=== PATIENT | female | born 1965 | race Caucasian/White ===

== ENCOUNTER 2018-10-01 14:11 | Emergency (ER) | payer SELFPAY ==
[2018-10-01 14:24] VITALS: BMI 26.4
--- NOTE | 2018-10-01 14:24 | PDOC ---
Rapid Medical Evaluation Chief Complaint: Lightheaded Time Seen by Provider: 10/01/18 14:20 Medical Evaluation: Allergies Allergy/AdvReac Type Severity Reaction Status Date / Time No Known Allergies Allergy Verified 04/11/18 19:47 10/01/18 14:23 I have performed a brief in-person evaluation of this patient. The patient presents with a chief complaint of: no PMhx present with complains 2weeks h/o dizziness with N/V. Denies diarrhea, weakness, SOB, constipation. Denies abd pain Pertinent physical exam findings: A&O x 3 in NAD. walking with normal gait I have ordered the following: CBC,CMP,UA,UCx The patient will proceed to the ED for further evaluation. Discharge Disposition - Diagnosis Dizziness - Discharge Dispostion Condition at time of disposition: Stable - Referrals - Patient Instructions - Post Discharge Activity
[2018-10-01 14:37] LABS: BASO % 0.3 % (0-2.0); EOS % 0.6 % (0-4.5); HEMATOCRIT 34.3 % (32.4-45.2); HEMOGLOBIN 11.7 GM/dL (10.7-15.3); LYMPH % 30.2 % (8-40); MCH 30.1 pg (25.7-33.7); MCHC 34.2 g/dl (32.0-36.0); MEAN CELL VOLUME 88.1 fl (80-96); MEAN PLT VOLUME 8.1 fl (7.5-11.1); MONO % 3.8 % (3.8-10.2); NEUT % 65.1 % (42.8-82.8); PLATELET COUNT 295 K/MM3 (134-434); RBC 3.89 M/mm3 (3.60-5.2); RDW 14.3 % (11.6-15.6)
[2018-10-01 15:05] LABS: ALBUMIN 3.9 g/dl (3.4-5.0); ALK PHOS 106 U/L (45-117); ANION GAP 5 MMOL/L (8-16); BILIRUBIN,TOTAL 0.3 mg/dL (0.2-1); BLOOD UREA NITROGEN 11 mg/dL (7-18); CALCIUM 8.4 mg/dL (8.5-10.1); CHLORIDE 105 mmol/L (98-107); CO2 26 mmol/L (21-32); CREATININE 0.5 mg/dL (0.55-1.3); GLUCOSE,RANDOM 99 mg/dL (74-106); POTASSIUM 3.6 mmol/L (3.5-5.1); SGOT/AST 23 U/L (15-37); SGPT/ALT 26 U/L (13-61); SODIUM 137 mmol/L (136-145); TOT PROT 6.9 g/dl (6.4-8.2)
--- NOTE | 2018-10-01 15:16 | PDOC ---
History of Present Illness - General Chief Complaint: Lightheaded Stated Complaint: DIZZINESS Time Seen by Provider: 10/01/18 14:20 History Source: Patient Exam Limitations: Language Barrier - History of Present Illness Initial Comments: 10/01/18 15:47 HP/ROS/PE performed with phone pillow agent: [id number] 53 year old female with PMH headaches (3X/week), vertigo, chronic left hand numbness (x6 months) presented to ED for room spinning dizziness, nausea, vomiting, headache. Pt stated she has had an intermittent headache for x2 weeks located to her occiput, relieved by Aleve, no aggravating factors, gradual in onset. She stated she did not take any Aleve today. She admitted to right ear tinnitus. She stated her dizziness is brought on by laying down flat. She was seen at her PCP Dr. Short's office yesterday, was prescribed a medication to treat her dizziness, but did not pick it up at the pharmacy because she had leftover medication at home from a prior ED visit for similar symptoms. She denied weakness, new numbness, abdominal pain, chest pain, shortness of breath. she stated she was given a referral for an ENT doctor yesterday, but has not yet made an appointment. she stated she came to the ED today because her symptoms did not improve after she took the Medication she was prescribed, and the nausea/vomiting continued. Allergies: NKDA Past History - Past Medical History Allergies/Adverse Reactions: Allergies Allergy/AdvReac Type Severity Reaction Status Date / Time No Known Allergies Allergy Verified 04/11/18 19:47 Home Medications: Ambulatory Orders No Home Medications 0 dose .ROUTE UTDICT 05/21/12 Meclizine HCl [Antivert -] 25 mg PO TID #14 tablet 04/11/18 Ondansetron [Zofran -] 4 mg PO TID #14 tablet 04/11/18 COPD: No Liver Disease: No - Surgical History Cardiac Surgery: No GI Surgery: No Neurologic Surgery: No - Immunization History Immunization Up to Date: No - Suicide/Smoking/Psychosocial Hx Smoking Status: No Smoking History: Unknown if ever smoked Have you smoked in the past 12 months: No Number of Cigarettes Smoked Daily: 0 Information on smoking cessation initiated: No Hx Alcohol Use: No Drug/Substance Use Hx: No Review of Systems - Review of Systems Able to Perform ROS?: Yes Comments:: 10/01/18 15:51 General: denied fever, chills, generalized weakness. HEENT: admitted to tinnitus. denied sore throat, rhinorrhea, ear pain. Heart: denied chest pain, palpitations, syncope, diaphoresis. Respiratory: denied shortness of breath, cough, sputum production, hemoptysis. Abdomen: admitted to nausea, vomiting. denied abdominal pain, diarrhea, constipation, blood in stool. : denied dysuria, increased urinary frequency, hematuria, urinary incontinence , flank pain. Back: denied back pain. Musculoskeletal: denied joint pain, muscle pain, joint swelling. Neurological: admitted to headache, dizziness, left hand numbness. denied tingling, weakness. Skin: denied rash, laceration, abrasion. *Physical Exam - Vital Signs Last Vital Signs Temp Pulse Resp BP Pulse Ox 98.6 F 68 16 170/75 98 10/01/18 14:22 10/01/18 14:22 10/01/18 14:22 10/01/18 14:22 10/01/18 14:22 - Physical Exam Comments: 10/01/18 15:52 Constitutional: Well-nourished, Well-developed, appearing stated age. HEENT: head is normocephalic, atraumatic. EOMI. PERRLA. Neck: supple. Full ROM. Heart: regular rhythm. no murmurs, rubs or gallops. Lungs: clear to auscultation bilaterally. no crackles, rhonchi or wheezing. no stridor. Abdomen: soft, nontender. normal bowel sounds. no rebound, guarding, masses. Extremities: peripheral pulses intact. no lower extremity edema. phalens test reproduces left hand numbness. Neurological: alert. oriented x3. CN2-12 intact. 5/5 strength all extremities. normal ankle plantar flexion. full sensation all extremities and bilateral face. no ataxia. gait normal. dizziness reproducible with laying flat, no nystagmus. Psych: awake, alert, oriented x3. follows commands. answers questions appropriately. ED Treatment Course - LABORATORY CBC & Chemistry Diagram: 10/01/18 14:27 10/01/18 14:27 - ADDITIONAL ORDERS Additional order review: Laboratory Results 10/01/18 14:27 Sodium 137 Potassium 3.6 Chloride 105 Carbon Dioxide 26 Anion Gap 5 L BUN 11 Creatinine 0.5 L Creat Clearance w eGFR 128.57 Random Glucose 99 Calcium 8.4 L Total Bilirubin 0.3 AST 23 ALT 26 Alkaline Phosphatase 106 Total Protein 6.9 Albumin 3.9 10/01/18 14:27 RBC 3.89 MCV 88.1 MCHC 34.2 RDW 14.3 MPV 8.1 D Neutrophils % 65.1 Lymphocytes % 30.2 D Monocytes % 3.8 Eosinophils % 0.6 D Basophils % 0.3 Medical Decision Making - Medical Decision Making 10/01/18 15:14 53 year old female with above PMH presented to ED for dizziness, nausea, vomiting, tinnitus x2 weeks. Initial Vital Signs Temp Pulse Resp BP Pulse Ox 98.6 F 68 16 170/75 98 10/01/18 14:22 10/01/18 14:22 10/01/18 14:22 10/01/18 14:22 10/01/18 14:22 Afebrile. No tachycardia. No tachypnea. Hypertensive. No hypoxia on room air. Labs ordered: CBC, CMP, UA/UC Medications ordered: Meclizine 25 mg PO, Tylenol 1000 cc IV, normal saline bolus 1000 cc, zofran 4 mg IV Imaging ordered: none Surgery Specialist called the patient's pharmacy ([facility]), who stated pt has only picked up Meclizine in the past. Review of medical records show pt was seen for dizziness and prescribed Meclizine at [facility]. CBC WBC 5.0 K/mm3 (4.0-10.0) 10/01/18 14:27 RBC 3.89 M/mm3 (3.60-5.2) 10/01/18 14:27 Hgb 11.7 GM/dL (10.7-15.3) 10/01/18 14:27 Hct 34.3 % (32.4-45.2) 10/01/18 14:27 MCV 88.1 fl (80-96) 10/01/18 14:27 MCH 30.1 pg (25.7-33.7) 10/01/18 14:27 MCHC 34.2 g/dl (32.0-36.0) 10/01/18 14:27 RDW 14.3 % (11.6-15.6) 10/01/18 14:27 Plt Count 295 K/MM3 (134-434) 10/01/18 14:27 MPV 8.1 fl (7.5-11.1) D 10/01/18 14:27 Absolute Neuts (auto) 3.2 K/mm3 (1.5-8.0) 10/01/18 14:27 Neutrophils % 65.1 % (42.8-82.8) 10/01/18 14:27 Lymphocytes % 30.2 % (8-40) D 10/01/18 14:27 Monocytes % 3.8 % (3.8-10.2) 10/01/18 14:27 Eosinophils % 0.6 % (0-4.5) D 10/01/18 14:27 Basophils % 0.3 % (0-2.0) 10/01/18 14:27 Nucleated RBC % 0 % (0-0) 10/01/18 14:27 No leukocytosis. No anemia. CMP Sodium 137 mmol/L (136-145) 10/01/18 14:27 Potassium 3.6 mmol/L (3.5-5.1) 10/01/18 14:27 Chloride 105 mmol/L (98-107) 10/01/18 14:27 Carbon Dioxide 26 mmol/L (21-32) 10/01/18 14:27 Anion Gap 5 MMOL/L (8-16) L 10/01/18 14:27 BUN 11 mg/dL (7-18) 10/01/18 14:27 Creatinine 0.5 mg/dL (0.55-1.3) L 10/01/18 14:27 Creat Clearance w eGFR 128.57 (>60) 10/01/18 14:27 Random Glucose 99 mg/dL (74-106) 10/01/18 14:27 Calcium 8.4 mg/dL (8.5-10.1) L 10/01/18 14:27 Total Bilirubin 0.3 mg/dL (0.2-1) 10/01/18 14:27 AST 23 U/L (15-37) 10/01/18 14:27 ALT 26 U/L (13-61) 10/01/18 14:27 Alkaline Phosphatase 106 U/L (45-117) 10/01/18 14:27 Total Protein 6.9 g/dl (6.4-8.2) 10/01/18 14:27 Albumin 3.9 g/dl (3.4-5.0) 10/01/18 14:27 No electrolyte abnormalities. No FRANDY. No hypoglycemia. 10/01/18 17:57 Pt reported improving headache, no dizziness, no nausea/vomiting. Pt reported she would like to go home. Pt informed to follow up with ENT. Additional referrals given to pt. Vital Signs Temperature 97.8 F 10/01/18 17:56 Pulse Rate 57 L 10/01/18 17:56 Respiratory Rate 16 10/01/18 17:56 Blood Pressure 155/78 10/01/18 17:56 O2 Sat by Pulse Oximetry (%) 98 10/01/18 17:56 BP improving with pain control. Pt discharged. Pt has Meclizine prescription at pharmacy. *DC/Admit/Observation/Transfer Diagnosis at time of Disposition: Dizziness, Nausea & vomiting, Headache - Discharge Dispostion Condition at time of disposition: Improved Decision to Admit order: No - Referrals Referrals: Justin Martinez MD [Staff Physician] - - Patient Instructions Printed Discharge Instructions: DI for Vertigo, DI for Headache, DI for Tinnitus Additional Instructions: Your lab work was normal. Follow up with your primary care doctor within 3 days. Bring the paperwork given to you today to your appointment. Follow up with an Ears Nose Throat Doctor within 3 days. I have provided you with a referral should you need it. Bring the paperwork given to you today to your appointment. 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 Drink lots of water to stay hydrated. Take 650 mg Tylenol every 4 hours over the counter for your headache. You can also take Aleve over the counter, take as advised on label. Get 8 hours of sleep at night. Return to the Emergency Department for weakness, numbness, tingling, vomiting, fever, chills, chest pain, shortness of breath or any other new, worsening or concerning symptoms. Tu trabajo de laboratorio fue normal. Toshia un seguimiento con gerardo mdico de atencin primaria dentro de los 3 nielson. Lleve el papeleo que se le entreg hoy a gerardo lizzeth. Toshia un seguimiento con un mdico de la oreja, la nariz, la garganta dentro de los 3 nielson. Le he proporcionado antonio referencia si la necesita. Lleve el papeleo que se le entreg hoy a gerardo lizzeth. Recoja gerardo receta mdica que gerardo mdico de atencin primaria le randee lo antes posible. Sobeida kirstin agua para mantenerte hidratado. Wilbur 650 mg de Tylenol cada 4 horas sin receta para el dolor de malcolm. Tambin puede llevar a Aleve sobre el mostrador, tucker sumanth se indica en la etiqueta. Consigue 8 horas de sueo por la noche. Regrese al Departamento de Emergencias para detectar debilidad, entumecimiento, hormigueo, vmitos, fiebre, escalofros, dolor de pecho, falta de aliento o cualquier otro sntoma nuevo, que empeore o que se relacione con ellos. Print Language: PALAUAN - Post Discharge Activity Forms/Work/School Notes: Back to Work
[2018-10-01] MEDS ORDERED: SODIUM CHLORIDE 1,000 ML IV STA (15:46)
[2018-10-01] MEDS ORDERED: ACETAMINOPHEN 1000 MG/100 ML VIAL (NON FORMULARY) IVPB ONE (15:46)
[2018-10-01] MEDS ORDERED: MECLIZINE HCL 25 MG TABLET (FP) PO ONE (15:47)
[2018-10-01] MEDS ORDERED: ONDANSETRON 4 MG/2 ML VIAL IVPUSH ONE (15:49)
[2018-10-01] MEDS ORDERED: MECLIZINE HCL 25 MG TABLET (FP) ONE (16:37)
[2018-10-01] MEDS ORDERED: ONDANSETRON 4 MG/2 ML VIAL ONE (16:38)
[2018-10-01] MEDS ORDERED: ACETAMINOPHEN INJECTION 100 ML IVPB ONE (16:38)
[2018-10-01 17:09] LABS: PH,URINE 7.5 (5.0-8.0); URINE APPEARANCE CLEAR; URINE BILIRUBIN NEGATIVE (NEGATIVE); URINE COLOR YELLOW; URINE GLUCOSE (UA) NEGATIVE (NEGATIVE); URINE KETONE NEGATIVE (NEGATIVE); URINE LEUK ESTERASE NEGATIVE (NEGATIVE); URINE NITRITE NEGATIVE (NEGATIVE); URINE PROTEIN NEGATIVE (NEGATIVE); URINE UROBILINOGEN 0.2 mg/dL (0.2-1.0)
--- NOTE | 2018-10-01 17:16 | PDOC ---
Attending Attestation - Resident Resident Name: Nelly Beaulieu - ED Attending Attestation I have performed the following: I have examined & evaluated the patient, The case was reviewed & discussed with the resident, I agree w/resident's findings & plan, Exceptions are as noted - Medical Decision Making 10/01/18 17:15 I, Dr. Jayleen Rubio, DO, attest that this document has been prepared under my direction and personally reviewed by me in its entirety. I further attest, that it accurately reflects all work, treatment, procedures and medical decision -making performed by me. 10/01/18 17:28 a/p: 53yo female with brody and dizziness -chronic brody, no change -hx of vertigo and has appt with ENT -took meclizine at home without relief -labs sent by the resident reviewed -reproducible by laying patient down -neuro intact, no focal findings -pt medicated by the resident. -brody resolved, dizziness resolved -no acute findings on HEENT exam -pt able to ambulate with a steady gait -pt requesting to go home and feels much better -has new Rx for meclizine from Dr. Short yesterday and appt with ENT <Jayleen Rubio - Last Filed: 10/01/18 17:28> - HPI HPI: The patient is a 53 year old female, with a significant PMH of vertigo, recurrent headaches, and chronic right-hand numbness, who presents to the emergency department today complaining of headache, dizziness, nausea, and vomit for 2 weeks. Patient reports that the headache is most prominent posteriorly, intermittent in nature, without any aggravating or alleviating factors. Patient also endorses room-spinning dizziness, which is exacerbated while laying flat and causes right ear ringing. She notes that her dizziness induces nausea and NBNB vomit. Patient reports seeing her PCP yesterday, which prescribed her a medication (doesnt recall) and referred her to follow up with ENT. She notes that the medication did not provide her with any relief for her symptoms. The patient denies chest pain, shortness of breath, headache and dizziness. Denies fever, chills, nausea, vomit, diarrhea and constipation. Denies dysuria, frequency, urgency and hematuria. Denies changes in vision or blurred vision. Allergies: NKA Past surgical history: None reported Social history: None reported PCP: Dr. Short 10/01/18 17:36 - Physicial Exam PE: ADULT EXAM GENERAL: Awake, alert, and fully oriented, in no acute distress. HEAD: No signs of trauma EYES: PERRLA, EOMI, sclera anicteric, conjunctiva clear ENT: Auricles normal inspection, hearing grossly normal, nares patent, oropharynx clear without exudates. Moist mucosa. Posterior pharynx clear. NECK: Normal ROM, supple, no lymphadenopathy, JVD, or masses LUNGS: Breath sounds equal, clear to auscultation bilaterally. No wheezes, and no crackles HEART: Regular rate and rhythm, normal S1 and S2, no murmurs, rubs or gallops ABDOMEN: Soft, nontender, normoactive bowel sounds. No guarding, no rebound. No masses EXTREMITIES: Normal range of motion, no edema. No clubbing or cyanosis. No cords, erythema, or tenderness NEUROLOGICAL: +Ambulating with very steady gait. Cranial nerves II through XII grossly intact. Normal speech. SKIN: Warm, Dry, normal turgor, no rashes or lesions noted 10/01/18 17:36 - Medical Decision Making Documentation prepared by CHRISTINE Herrera, acting as medical care evaluation specialist for Jayleen Rubio DO. 10/01/18 17:37 <Zeinab Garcia - Last Filed: 10/01/18 17:37>
[2018-10-01 17:57] VITALS: BP 155/78; PULSE 57; TEMP 97.8
== END 2018-10-01 18:31 | disposition home or self-care (01) ==
LOC: JER 14:11 → SUPCPDRO 14:11 → JER 18:31
PROC: 3E0337Z Introduction of Electrolytic and Water Balance Substance into Peripheral Vein, Percutaneous Approach (ICD-10-PCS; principal; 2018-10-01)
PROC: 3E033NZ Introduction of Analgesics, Hypnotics, Sedatives into Peripheral Vein, Percutaneous Approach (ICD-10-PCS; 2018-10-01)
PROC: 3E033GC Introduction of Other Therapeutic Substance into Peripheral Vein, Percutaneous Approach (ICD-10-PCS; 2018-10-01)
DX: R42 Dizziness and giddiness (principal); R51 Headache; R11.2 Nausea with vomiting, unspecified
CPT/HCPCS: 36415; 80053; 81003; 85025; 87086; 99282-25; J0131; J7030

== ENCOUNTER 2022-09-08 13:07 | Emergency (ER) | payer OTHER ==
[2022-09-08 13:12] VITALS: RESP 18; BMI 26.4
[2022-09-08] MEDS ORDERED: ONDANSETRON 4 MG/2 ML VIAL IVPUSH ONE (16:20)
[2022-09-08] MEDS ORDERED: ACETAMINOPHEN 1000 MG/100 ML BAG IVPB ONE (16:20)
[2022-09-08] MEDS ORDERED: SODIUM CHLORIDE 0.9% 500 ML INFUS.BAG IV ONE (16:20)
[2022-09-08] MEDS ORDERED: ACETAMINOPHEN INJECTION 100 ML IVPB ONE (16:30)
[2022-09-08] MEDS ORDERED: ONDANSETRON 4 MG/2 ML VIAL ONE (16:30)
[2022-09-08 17:12] LABS: BASO % 0.3 % (0-2.0); HEMATOCRIT 34.3 % (32.4-45.2); HEMOGLOBIN 11.6 GM/dL (10.7-15.3); LYMPH % 22.6 % (8-40); MCH 29.9 pg (25.7-33.7); MCHC 33.9 g/dl (32.0-36.0); MEAN CELL VOLUME 88.1 fl (80-96); MEAN PLT VOLUME 8.5 fl (7.5-11.1); MONO % 7.5 % (3.8-10.2); NEUT % 68.6 % (42.8-82.8); PLATELET COUNT 305 10^3/uL (134-434); RBC 3.89 M/mm3 (3.60-5.2); RDW 14.3 % (11.6-15.6); WHITE BLOOD COUNT 5.3 K/mm3 (4.0-10.0)
[2022-09-08 17:13] LABS: PH,URINE 5.5 (5.0-8.0); URINE APPEARANCE CLEAR; URINE BILIRUBIN NEGATIVE (NEGATIVE); URINE COLOR YELLOW; URINE GLUCOSE (UA) NEGATIVE (NEGATIVE); URINE KETONE NEGATIVE (NEGATIVE); URINE LEUK ESTERASE NEGATIVE (NEGATIVE); URINE NITRITE NEGATIVE (NEGATIVE); URINE PROTEIN NEGATIVE (NEGATIVE); URINE UROBILINOGEN 0.2 mg/dL (0.2-1.0)
[2022-09-08 17:28] LABS: ALBUMIN 3.5 g/dl (3.4-5.0); BLOOD UREA NITROGEN 19.4 mg/dL (7-18); CALCIUM 8.3 mg/dL (8.5-10.1)
[2022-09-08 17:31] LABS: CREATININE 0.7 mg/dL (0.55-1.3)
[2022-09-08 17:33] LABS: BILIRUBIN,TOTAL 0.2 mg/dL (0.2-1); TOT PROT 6.5 g/dl (6.4-8.2)
[2022-09-08 18:54] VITALS: BP 141/80; PULSE 58
== END 2022-09-08 18:54 | disposition home or self-care (01) ==
LOC: JER 13:07
PROC: 3E033NZ Introduction of Analgesics, Hypnotics, Sedatives into Peripheral Vein, Percutaneous Approach (ICD-10-PCS; principal; 2022-09-08)
PROC: 3E033GC Introduction of Other Therapeutic Substance into Peripheral Vein, Percutaneous Approach (ICD-10-PCS; 2022-09-08)
DX: R10.13 Epigastric pain (principal); R51.9 Headache, unspecified; R11.2 Nausea with vomiting, unspecified; R19.7 Diarrhea, unspecified; Z20.822 Contact with and (suspected) exposure to COVID-19
CPT/HCPCS: 0241U-QW; 36415; 71046-TC-FY; 80053; 81003; 83690; 84484; 85025; 93005; 93010; 99285-25